=== PATIENT | female | born 1945 | race Caucasian/White ===

== ENCOUNTER 2017-10-24 07:33 | Day surgery (SDC) | payer MEDICARE, OTHER ==
[2017-10-24] MEDS: NS 1,000 ML IV (07:56)
[2017-10-24] MEDS ORDERED: PROPOFOL 200 MG/20 ML VIAL As Ordered ×2 (09:12→09:29)
== END 2017-10-24 10:40 | disposition home or self-care (01) ==
LOC: M OPP 07:33
DX: Z12.11 Encounter for screening for malignant neoplasm of colon (principal); K63.5 Polyp of colon; K64.8 Other hemorrhoids; K57.30 Diverticulosis of large intestine without perforation or abscess without bleeding; I10 Essential (primary) hypertension; R60.0 Localized edema; E03.9 Hypothyroidism, unspecified; K21.9 Gastro-esophageal reflux disease without esophagitis; M19.90 Unspecified osteoarthritis, unspecified site; F41.9 Anxiety disorder, unspecified; J45.909 Unspecified asthma, uncomplicated; Z88.8 Allergy status to other drugs, medicaments and biological substances; Z91.041 Radiographic dye allergy status; Z88.1 Allergy status to other antibiotic agents; Z88.0 Allergy status to penicillin; Z79.899 Other long term (current) drug therapy
CPT/HCPCS: 45380

== ENCOUNTER 2018-04-25 11:45 | Day surgery (SDC) | payer MEDICARE, OTHER ==
[~2018-04-25 11:45] MED LIST: LIDOCAINE 1% MDV 20ML VIAL SQ
[2018-04-25] MEDS: LR 1,000 ML IV (12:11)
[2018-04-25 12:14] LABS: HEMATOCRIT 40.9 % (36.0-47.0); HEMOGLOBIN 13.5 g/dl (12.0-15.5); MEAN CORPUSCULAR HEMOGLOBIN 30.3 pg (27.0-33.0); MEAN CORPUSCULAR VOLUME 91.7 fl (80.0-96.0); PLATELET COUNT, AUTOMATED 355 10^3/uL (150-450); RED BLOOD COUNT 4.46 10^6/uL (4.00-5.40); WHITE BLOOD COUNT 6.9 10^3/uL (4.0-10.0)
[2018-04-25] MEDS ORDERED: LIDOCAINE 2% INJ 100 MG/5 ML SDV (FOR ANES.) As Ordered (14:01)
[2018-04-25] MEDS ORDERED: MIDAZOLAM INJ 2 MG/2 ML VIAL (J2250) As Ordered (14:01)
[2018-04-25] MEDS ORDERED: fentaNYL 100 MCG/2 ML INJECTION (J3010) As Ordered (14:01)
[2018-04-25] MEDS ORDERED: PROPOFOL 200 MG/20 ML VIAL As Ordered (14:01)
[2018-04-25] MEDS ORDERED: ONDANSETRON 4MG/2ML VIAL (J2405) As Ordered (14:59)
[2018-04-25] MEDS ORDERED: dexameTHASONE 4 MG/ML 1ML VIAL (J1100) As Ordered ×2 (14:59)
[2018-04-25] MEDS ORDERED: KETOROLAC 60 MG/2 ML VIAL (J1885) As Ordered (14:59)
[2018-04-25] MEDS: LIDOCAINE 1% SDV INJ 30 ML VIAL As Ordered (15:04)
[2018-04-25] MEDS ORDERED: fentaNYL 100 MCG/2 ML INJECTION (J3010) IV (15:45)
[2018-04-25] MEDS ORDERED: LR 1,000 ML IV ×2 (15:45→16:00)
[2018-04-25] MEDS ORDERED: MEPERIDINE INJ 25 MG/ML VIAL (J2175) IV (15:45)
[2018-04-25] MEDS ORDERED: METOCLOPRAMIDE INJ 10MG/2ML VIAL (J2765) IV (15:45)
[2018-04-25] MEDS ORDERED: ONDANSETRON 4MG/2ML VIAL (J2405) IV (15:45)
[2018-04-25] MEDS ORDERED: traMADol 50 MG TAB PO (16:00)
[2018-04-25] MEDS: ACETAMINOPHEN 500 MG TAB PO (16:35)
== END 2018-04-25 17:15 | disposition home or self-care (01) ==
LOC: M SDC 11:45
DX: N84.2 Polyp of vagina (principal); I10 Essential (primary) hypertension; J45.909 Unspecified asthma, uncomplicated; E03.9 Hypothyroidism, unspecified; M12.9 Arthropathy, unspecified; H40.9 Unspecified glaucoma; M85.80 Other specified disorders of bone density and structure, unspecified site; R60.0 Localized edema; F41.9 Anxiety disorder, unspecified; K21.9 Gastro-esophageal reflux disease without esophagitis; R06.02 Shortness of breath; Z88.0 Allergy status to penicillin; Z88.1 Allergy status to other antibiotic agents; Z88.6 Allergy status to analgesic agent; Z88.8 Allergy status to other drugs, medicaments and biological substances; Z91.09 Other allergy status, other than to drugs and biological substances; Z91.041 Radiographic dye allergy status; Z79.899 Other long term (current) drug therapy; Z87.81 Personal history of (healed) traumatic fracture; Z90.710 Acquired absence of both cervix and uterus
CPT/HCPCS: 57135

== ENCOUNTER → 2021-06-06 | Outpatient (REF) | payer MEDICARE, OTHER ==
[~2021-06-06] MED LIST changes: +ADVA115A INH; +CHLO125TA PO; +CLAR10CA3 PO; +LATA0.0013 OU; +LEVO25TA5 PO; -LIDOCAINE 1% MDV 20ML VIAL SQ; +LORA0.5T5 PO; +MULT1TAB10 PO; +PRED5PAK PO; +PROV108A INH
== END ==
LOC: M LAB REF 17:15
PROVIDERS: ATTEND Otolaryngology
DX: K14.1 Geographic tongue (principal); B37.0 Candidal stomatitis

== ENCOUNTER 2022-02-16 13:21 | Outpatient (RCR) | payer MEDICARE, OTHER | END 2022-02-28 | LOC: M PT 13:21 | PROVIDERS: ATTEND Internal Medicine Hematology & Oncology | DX: I89.0 Lymphedema, not elsewhere classified (principal) ==